=== PATIENT | female | born 1975 | race Caucasian/White ===

== ENCOUNTER → 2022-02-19 12:18 | Outpatient (CLI) | payer BC, SELFPAY ==
[2022-02-19 13:19] LABS: COVID19 -Nasal RAPID Negative (Negative)
[2022-02-19 13:41] LABS: Add Manual Diff / Slide Review NO; Basophils Absolute Auto 0 /uL (0-100); Basophils Percent Auto 0.6 % (0-2); Eosinophils Absolute Auto 100 /uL (0-450); Eosinophils Percent Auto 1.4 % (2-4); Hematocrit 32.8 % (36-46); Hemoglobin 11.5 g/dL (12.0-16.0); Lymphocytes Absolute Auto 2400 /uL (1100-4500); Lymphocytes Percent Auto 31.3 % (25-40); Mean Corpuscular HGB Conc 35.1 % (30-36); Mean Corpuscular Hemoglobin 33.6 PG (26-34); Mean Corpuscular Volume 95.7 fL (80-100); Monocytes Absolute Auto 400 /uL (0-900); Monocytes Percent Auto 4.8 % (3-14); Neutrophils Absolute Auto 4700 /uL (1500-7000); Neutrophils Percent Auto 61.9 % (50-75); Platelet Count 228 X10^3/uL (150-400); Red Blood Cell Count 3.43 X10^6/uL (4.0-5.2); Red Cell Distribution Width 13.7 % (11.6-14.8); White Blood Cell Count 7.6 X10^3/uL (4.5-11.0)
[2022-02-19 14:07] LABS: BUN Creatinine Ratio 22.1 (6-22); Blood Urea Nitrogen 17 mg/dL (7-17); Calcium 8.2 mg/dL (8.4-10.2); Carbon Dioxide 27 mmol/L (22-32); Chloride 98 mmol/L (98-107); Estimated Glomerular Filt Rate > 60 mL/min (>60); Glucose 112 mg/dL (70-100); Sodium 130 mmol/L (137-145)
[2022-02-19 14:23] LABS: HEMOLYSIS 156 (0-50)
[2022-02-19 14:25] LABS: Potassium 4.8 mmol/L (3.4-5.1)
== END ==
PROVIDERS: PCP Internal Medicine Geriatric Medicine; Referring Provider Orthopaedic Surgery Orthopaedic Surgery of the Spine; Visit Provider Orthopaedic Surgery Orthopaedic Surgery of the Spine
DX: Z01.812 Encounter for preprocedural laboratory examination (principal); Z20.822 Contact with and (suspected) exposure to COVID-19
CPT/HCPCS: 36415; 80048; 85025; 87635; C9803

== ENCOUNTER 2022-02-21 06:10 | Day surgery (SDC) | payer BC, SELFPAY ==
[2022-02-19 14:26] VITALS: BMI 39.2
[2022-02-21] VITALS (9 sets, daily range): BP systolic 102–127; BP diastolic 54–83; PULSE 82–97; RESP 13–25; TEMP 36.2–36.8; O2SAT 92–99; BMI 39.2
[2022-02-21] MEDS: LACTATED RINGERS 1,000 ML 42 ML IV ×2 (07:11→09:39)
[2022-02-21] MEDS: ACETAMINOPHEN 325 MG TABLET 975 MG PO (07:12)
--- NOTE | 2022-02-21 07:44 | PM.PREOP ---
Pre-operative Note COVID-19 COVID-19 status: Negative Result date/Date tested (Pos, Neg/Pending): 02/20/22 Criteria for continued procedure: Expected advancement of disease process, Possibility delay results in more complex future surgery or treatment, Increased loss of function, Continuing or worsening of significant or severe pain, Deterioration of the patient's condition or overall health and Delay expected to result in less-positive ultimate med/surg outcome Interval Note History & Physical reviewed/Exam performed by Physician: Yes Changes to H&P: No
--- NOTE | 2022-02-21 07:47 | P.OP_ITS ---
Operative Date/Time/Diagnoses Date of procedure: 02/21/22 Time of procedure: 07:50 Pre-op diagnosis: 1. 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 Lumbar radiculopathy Post-op diagnosis: same Procedure & Clinicians Procedure: 1. Extraforamen approach for far lateral microdiscectomy 2. Utilization of microsurgical tecnique and operating microscope Same procedure as scheduled: Yes Indications: Ms. Arana is a 46 yo F with right leg radiculopathy due to L4-5 far lateral disc herniation impinging on right L4 nerve root. She failed conservative care with worsening leg pain and weakness. After discussing risks and benefits of surgical treatment, patient elected to proceed with right L4-5 far lateral microdiscectomy through extraforamen appro ach. Surgeon: Gio Giordano Associate Professor Of Counseling: Alyssa Ramirez Click Yes if Unassisted: No Anesthesia Type: General Operative Notes Closure Type: primary Specimen(s): none sent Estimated Blood Loss (mL): 5 Blood products transfused: none Procedure in detail: Patient was seen in the preoperative area. Risks and benefits of the surgery was discussed with the patient. Informed consent was obtained from the patient and placed in the chart. Surgical site was marked. Patient was taken to the operative room. General anesthesia was administered. Prophylactic antibiotic was given to the patient less than 30 min before the incision was made. Patient was placed into a prone position on the Chivo table. Patient's back was then prepped and draped in the sterile fashion. Time-out was performed at this time. Using AP and lateral C-arm imaging the interval between L4-5 was identified and marked on patient's back. A 1 inch incision 1 in from midline was made on the right side. The fascia was incised in line with skin incision. Globus MARS retractors was placed inside the incision and docked onto the L4 transverse process on the right side. The retractor was then redirected towards the L4-5 neuroforamen on the right under C-arm guidance. Using microsurgical technique and operating microscope, a extra foraminal approach was used to perform a L4-5 right far lateral microdiskectomy. The disc at L4-5 level was accessed from out side the neuroforamen towards the foramenal space. The disc space at L4-5 was identified. Microdiscectomy was performed by incising the annulus with #11 blade. Microcurettes and pituitary was used to removed extruded and herniated disc fragments of disc from the foraminal space at L4-5 level on the right. After the microdiskectomy was completed, the area medial lateral superior and inferior to the area of the microdiskectomy was inspected and explored using a micro curette. No other impinging structure was identified. The wound was then irrigated with sterile normal saline. 40 mg Depo-Medrol was placed into the epidural space. The deep fascia was closed with 1-0 Vicryl. The subcutaneous tissue was closed with 2-0 Vicryl. The skin was closed with 4-0 Monocryl. Patient tolerated the procedure well. There were no complications. Patient was transferred recovery room in stable condition. Complications: none Post-operative Condition: stable Disposition: PACU Plan for aftercare: Discharge to home
[2022-02-21] MEDS: APREPITANT 40 MG CAPSULE PO (08:04)
[2022-02-21] MEDS: CLINDAMYCIN 900 MG/50 ML PIGGYBACK 50 MG IV (08:09)
[2022-02-21] MEDS: BUPIVACAINE 0.25% (PF) 60 ML, EPINEPHrine 0.3 MG INJ (08:40)
--- NOTE | 2022-02-21 08:46 | SUR.OPER ---
Prone on spine table, head in foam head support, padded chest and pelvic supports, gel pad at knees, lower legs supported by pillows; nipples, genitalia and toes free of pressure, arms secured on foam padded arm boards at <90 degrees abduction. Tape over blanket at thigh secured to table.
--- NOTE | 2022-02-21 09:06 | DI.RAD.S_ITS ---
PROCEDURE: XR LUMBAR SPINE 2-3V INDICATIONS: L4-5 MICRODISCECTOMY TECHNIQUE: 2 intraoperative fluoroscopic views of the lumbar spine were acquired. COMPARISON: None. FINDINGS: Intraoperative fluoroscopic images of lower lumbar spine shows surgical hardware projecting over posterior and right side of L4-5 level. IMPRESSION: Fluoro guidance was provided intraoperatively for L4-5 micro discectomy performed by the ordering physician. Dictated by: Nuno Gamboa M.D. on 02/21/2022 at 16:22 Approved by: Nuno Gamboa M.D. on 02/21/2022 at 16:23
[2022-02-21] MEDS: SUGAMMADEX 500 MG/5 ML VIAL 220 MG IV (09:30)
[2022-02-21] MEDS: ALBUTEROL 2.5 MG/3 ML NEB (ADULT) INH (09:50)
[2022-02-21] MEDS: OXYCODONE IR 5 MG TABLET PO ×2 (09:55→10:18)
[2022-02-21] MEDS: hydrOXYzine 50 MG/ML INJ 25 MG IM (10:07)
[2022-02-21] MEDS: HYDROMORPHONE 2 MG INJ IV ×2 (10:27→10:32)
== END 2022-02-21 11:15 | disposition home or self-care (01) ==
PROVIDERS: PCP Internal Medicine Geriatric Medicine; Referring Provider Orthopaedic Surgery Orthopaedic Surgery of the Spine; Visit Provider Orthopaedic Surgery Orthopaedic Surgery of the Spine
PROC: (CPT 63056; principal; 2022-02-21 07:45)
DX: M51.26 Other intervertebral disc displacement, lumbar region (principal); M54.16 Radiculopathy, lumbar region; I10 Essential (primary) hypertension; K21.9 Gastro-esophageal reflux disease without esophagitis
CPT/HCPCS: 63056; 72100; 76000; 81025; 82962; J0171; J0330; J1100; J1170; J1885; J2250; J2405; J2704; J2920; J3010; J3410; J7613; J8501